=== PATIENT | female | born 1940 | race Caucasian/White ===

== ENCOUNTER 2017-10-19 07:57 | Emergency (ER) | payer OTHER, MEDICARE ==
[~2017-10-19] VITALS: Ht 162.6 cm; Wt 70.3 kg
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
--- NOTE | 2017-10-19 09:04 | RADIOLOGY REPORT ---
EXAMINATION: XR HUMERUS, RIGHT CLINICAL INFORMATION: Status post fall, complaining of right arm pain. COMPARISON: None TECHNIQUE: AP and lateral views of the right humerus. FINDINGS: Anterior inferior glenohumeral dislocation is present. No definite radiographic evidence of fracture visualized. The acromioclavicular alignment is intact. The soft tissues are unremarkable. IMPRESSION: Anteroinferior dislocation of the right glenohumeral joint without any definite radiographic evidence of underlying fracture.
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
[2017-10-19] MEDS ORDERED: COZAAR25 M1 PO (11:17)
[2017-10-19] MEDS ORDERED: ASPIRIN EC81 M1 PO (11:38)
[2017-10-19] MEDS ORDERED: NEXIUM20 M1 PO (11:38)
[2017-10-19] MEDS ORDERED: MULTIVITAMINS1 EAC9 PO (11:38)
[2017-10-19 12:28] VITALS: BP 192/94
== END 2017-10-19 12:34 ==
LOC: ERH 07:57
DX: S43.014A Anterior dislocation of right humerus, initial encounter (principal); S09.90XA Unspecified injury of head, initial encounter; I10 Essential (primary) hypertension; W18.09XA Striking against other object with subsequent fall, initial encounter; Y93.01 Activity, walking, marching and hiking; Y92.009 Unspecified place in unspecified non-institutional (private) residence as the place of occurrence of the external cause
CPT/HCPCS: 73030-RT; 73060-RT; 93005; 93010; 96374; 96375